=== PATIENT | female | born 1975 | race Caucasian/White ===

== ENCOUNTER 2020-10-21 08:48 | Inpatient (IN) | payer MEDICAID, SELFPAY ==
[~2020-10-21] VITALS: Ht 160 cm; Wt 80.7 kg
[2020-10-21 09:01] VITALS: BP_SYST 96
--- NOTE | 2020-10-21 09:06 | NUR ---
Patient triaged and placed in waiting room. VSS and patient appears in no acute distress at this time. Awaiting available bed, and MD notified of need for MSE.
--- NOTE | 2020-10-21 10:31 | NUR ---
Patient to ER bed 1 to gown for evaluation. Side rails up. Report given to DANIA Rod.
--- NOTE | 2020-10-21 10:34 | NUR ---
ER Dr. Mead at bedside examining patient.
--- NOTE | 2020-10-21 10:36 | NUR ---
Blaise worthy in [facility] - 10/21/20 at 1036 by SDNURGD JESSICA Bowen at bedside examining patient.
--- NOTE | 2020-10-21 10:36 | NUR ---
ER at bedside examining patient.
--- NOTE | 2020-10-21 10:36 | NUR ---
pt arrives from home w/ c/o lower viola quadrant abd pain 06/23, since yesterday. Pt was seen at an urgent care yesterday and was dx w/ a UTI and was dc'd w/ antibiotics. Pt denies N/v/d. reports having issues w/ constipation.
[2020-10-21] MEDS ORDERED: NACL 0.9% 1,000 ML IV ONE (10:45)
[2020-10-21] MEDS ORDERED: KETOROLAC TROMETHAMINE 30 MG VIAL IVP ONE (10:45)
[2020-10-21] MEDS ORDERED: cefTRIAXone 1 GM IVPB PREMIX 50 ML IV ONE (10:45)
--- NOTE | 2020-10-21 10:45 | NUR ---
# 22 gauge angiocath placed to RAC. Use of asceptic technique. Opsite placed over site. Blood return noted. Blood for lab drawn from site. Flushed with 10 cc of normal saline. No evidence of infiltration noted. Patient tolerated well.
--- NOTE | 2020-10-21 10:50 | NUR ---
Patient transported to radiology via , accompanied by hydro technician.
[2020-10-21 11:11] LABS: HEMATOCRIT 40.7 % (36-48); HEMOGLOBIN 13.7 g/dL (12.0-16.0); LYMPHOCYTES # (AUTO) 0.5 K/uL (1.0-5.5); LYMPHOCYTES % (AUTO) 4.4 % (20.5-51.5); MEAN CORPUSCULAR HEMOGLOBIN 29 pg (27-31); MEAN CORPUSCULAR HGB CONC 34 % (32-36); MEAN CORPUSCULAR VOLUME 86 fL (79.0-98.0); MONOCYTES # (AUTO) 0.3 K/uL (0.0-1.0); MONOCYTES % (AUTO) 2.5 % (1.7-9.3); NEUTROPHILS # (AUTO) 11.4 K/uL (1.8-7.7); NEUTROPHILS % (AUTO) 93.1 % (40.0-70.0); PLATELET COUNT (AUTO) 315 K/uL (130-430); RED BLOOD CELL COUNT(AUTO) 4.76 MIL/uL (4.2-6.2); RED CELL DISTRIBUTION WIDTH 13.4 % (9.0-15.0); WHITE BLOOD COUNT (AUTO) 12.3 K/uL (4.8-10.8)
[2020-10-21 11:37] LABS: CREATININE 1.3 mg/dL (0.55-1.30); POTASSIUM 4.1 mmol/L (3.5-5.1)
[2020-10-21 11:42] LABS: ALBUMIN 2.8 g/dL (3.4-4.8)
--- NOTE | 2020-10-21 11:45 | NUR ---
medicated w/ Toradol, Rocephin, and NS 1l per MD order.
[2020-10-21] MEDS ORDERED: ONDANSETRON HCL 4 MG/2 ML VIAL IVP ONE (12:45)
[2020-10-21] MEDS ORDERED: MORPHINE 2 MG/ML INJ. SYRINGE IVP ONE (12:45)
--- NOTE | 2020-10-21 13:03 | NUR ---
Patient transported to radiology via WC, accompanied by us TECH.
[2020-10-21 13:17] LABS: BILIRUBIN,URINE 2+ (NEGATIVE); GLUCOSE,URINE NEGATIVE (NEGATIVE); KETONES,URINE 1+ (NEGATIVE); LEUKOCYTE ESTERASE ,URINE 2+ (NEGATIVE); NITRITE, URINE POSITIVE (NEGATIVE); PROTEIN URINE 3+ (NEGATIVE)
[2020-10-21 13:18] LABS: BLOOD, URINE TRACE (NEGATIVE); COLOR,URINE RED (YELLOW)
[2020-10-21 13:19] LABS: CLARITY/URINE HAZY (CLEAR)
[2020-10-21 13:25] LABS: BACTERIA,URINE None Seen /HPF (None Seen); CALCIUM PHOSPHATE CRYSTALS,UR None Seen /HPF (None Seen); RBC,URINE 0-3 /HPF (0-3); TRICHOMONAS,URINE None Seen /HPF (None Seen); YEAST,URINE None Seen /HPF (None Seen)
[2020-10-21] MEDS ORDERED: DOXYCYCLINE HYCLATE 100 MG in D5W 100 ML IV ONE (14:15)
[2020-10-21] MEDS ORDERED: DOXYCYCLINE HYCLATE 100 MG VIAL IV ONE (14:25)
--- NOTE | 2020-10-21 14:41 | NUR ---
Blaise worthy in [facility] - 10/21/20 at 1447 by CRISELDA pt left at this time accompanied by his son
--- NOTE | 2020-10-21 14:56 | NUR ---
called for a Med Surg bed. Unable to speak to CN at this time
--- NOTE | 2020-10-21 15:12 | NUR ---
covid swab collected and sent to lab
--- NOTE | 2020-10-21 16:04 | NUR ---
called for a Med Surg bed. Unable to speak to CN
[2020-10-21] MEDS ORDERED: PHEN-890 PO (16:39)
[2020-10-21] MEDS ORDERED: CEPH-568 PO (16:39)
--- NOTE | 2020-10-21 16:42 | NUR ---
Medication reconciliation completed with information provided by the pt. Any prior medication reconciliation on file was reviewed and corrected.
--- NOTE | 2020-10-21 16:44 | NUR ---
unable to obtain a Med Surg bed Addendum: 10/21/20 at 1705 by CRISELDA CN refusing to take patient information
[2020-10-21] MEDS: 0.45% NACL 1,000 ML IV SCH (17:43)
--- NOTE | 2020-10-21 17:51 | NUR ---
Dr. Hackett at the bedside
[2020-10-21] MEDS ORDERED: ACETAMINOPHEN 500 MG TABLET ONE (17:53)
[2020-10-21] MEDS: ACETAMINOPHEN 500 MG TABLET PO PRN (17:55)
--- NOTE | 2020-10-21 18:13 | NUR ---
Patient is refusing to be admitted to COVID unit. Dr. Lew sawyer.
--- NOTE | 2020-10-21 18:27 | NUR ---
Patient will be admitted to care of [facility]. Admitted to MED SURG unit. Will go to room 101-A. Belongings list completed. Complete and up to date summary report printed. SBAR report to be given at bedside with opportunity for questions. BEDSIDE REPORT TO BE GIVEN
--- NOTE | 2020-10-21 18:43 | NUR ---
Admission Note patient brought to room 101A via gurney by AUTO PARKER, patient ambulated to bed, steady gait noted, received bedside SBAR report from AUTO PARKER, patient resting in bed, A&O x4, respirations even and unlabored on room air, no acute distress noted, patient provided with water, educated patient on use of call light and asked to call for assistance, patient verbalized understanding, call light in reach, educated patient on use of bed alarm for patient safety, patient refusing bed alarm, bed in low and locked position.
[2020-10-21 18:45] VITALS: BP_SYST 99
--- NOTE | 2020-10-21 19:09 | NUR ---
Closing Note bedside SBAR report given to receiving RN, patient sitting up in bed, no acute distress noted, educated patient on use of call light and asked to call for assistance, patient verbalized understanding, call light in reach, educated patient on use of bed alarm for patient safety, patient refusing bed alarm, bed in low and locked position, care endorsed to nightclub manager RN.
--- NOTE | 2020-10-21 19:15 | NUR ---
OPENING NOTES: RECEIVED SBAR REPORT FROM DAY SHIFT RN. PATIENT IS AWAKE, ALERT AND ORIENTED X4. RESPIRATION IS EVEN AND UNLABORED ON RA. REPORTS PAIN IN LOWER ABDOMEN. IV NOTED ON R AC. OCCLUDED. SAFETY AND FALL PRECAUTIONS IN PLACE. CALL LIGHT IS WITH PATIENT. WILL GIVE MED FOR PAIN.
--- NOTE | 2020-10-21 19:20 | NUR ---
SPOKE TO DR. ARMAS, NEW ORDERS OF PAIN MEDS RECEIVED.
[2020-10-21 20:00] VITALS: BP_SYST 101
[2020-10-21] MEDS ORDERED: cefOXitin SODIUM 2 GM in D5W 100 ML IV ONE (20:00)
[2020-10-21] MEDS: DOXYCYCLINE HYCLATE 100 MG CAPSULE PO SCH (20:25)
--- NOTE | 2020-10-21 20:30 | NUR ---
IS AT PATIENT BED SIDE. PLAN OF CARE DISCUSSED WITH PATIENT.
[2020-10-21] MEDS: MORPHINE 2 MG/ML INJ. SYRINGE IVP PRN (20:31)
[2020-10-21] MEDS: ONDANSETRON HCL 4 MG/2 ML VIAL IVP PRN (20:32)
--- NOTE | 2020-10-22 00:30 | NUR ---
NEW IV 22 GAUGE STARTED ON L FOREARM.
--- NOTE | 2020-10-22 01:56 | NUR ---
CONSULT REASON FOR CONSULT: ABD PAIN PERSON I SPOKE WITH: YOBANY CONSULTING PHYSICIAN: DR. SALCEDO LATCHER PHONE NUMBER: [phone] ORDERING PHYSICIAN: Lizzy RAMIREZ
[2020-10-22] MEDS: metroNIDAZOLE 500 mg/NS 100 ML IV SCH ×4 (02:13→21:03)
[2020-10-22 02:16] VITALS: BP_SYST 104
--- NOTE | 2020-10-22 02:30 | NUR ---
RN ROUNDS: PATIENT IS AWAKE, IVF INFUSING ORDERED RATE. NO S/S ACUTE DISTRESS NOTED. SAFETY AND FALL PRECAUTIONS IN PLACE. CALL LIGHT WITH PATIENT. WILL MONITOR PATIENT.
--- NOTE | 2020-10-22 05:47 | NUR ---
CONSULT REASON FOR CONSULT: PID PERSON I SPOKE WITH: YASMIN CONSULTING PHYSICIAN: Gigi RAMIREZ ADMINISTRATOR SOCIAL WELFARE PHONE NUMBER: [phone] ORDERING PHYSICIAN: DR. ARMAS
[2020-10-22] MEDS: ONDANSETRON HCL 4 MG/2 ML VIAL IVP PRN (06:10)
[2020-10-22] MEDS: cefOXitin SODIUM 2 GM in D5W 100 ML IV SCH ×3 (06:10→17:36)
[2020-10-22] MEDS: MORPHINE 2 MG/ML INJ. SYRINGE IVP PRN ×3 (06:14→20:09)
--- NOTE | 2020-10-22 07:04 | NUR ---
CLOSING NOTE: PATIENT GIVEN MORNING IV MED . REPORTS ABDOMEN PAIN. PAIN MED GIVEN. NO S/S ACUTE DISTRESS NOTED. SAFETY AND FALL PRECAUTIONS IN PLACE. CALL LIGHT IS WITHIN REACH. ALL NEEDS MET THROUGHOUT SHIFT. WILL ENDORSE PATIENT CARE TO DAY SHIFT NURSE.
--- NOTE | 2020-10-22 07:10 | NUR ---
Opening Note Received report from endorsing RN. Pt AAO, states no acute pain or distress at this time. IV site intact, patent, no infiltration noted. Pt states being unable to have BM and is c/o constipation. Afebrile. Able to ambulate to bathroom with steady gait. No other complaints at this time.
[2020-10-22 08:00] VITALS: BP_SYST 98
--- NOTE | 2020-10-22 08:23 | NUR ---
Nutrition Update Mohamud scale 17 noted. Pt admitted for urinary tract infection, possible pelvic inflammatory disease Diet: Regular Diet BMI: 31.5 kg/m2 RD to follow per nutrition care standards.
[2020-10-22] MEDS ORDERED: POLYETHYLENE GLYCOL 3350, 17 GM/ POWD.PACK PO ONE (08:30)
[2020-10-22] MEDS ORDERED: DOCUSATE SODIUM 100 MG CAPSULE PO ONE (08:30)
[2020-10-22] MEDS ORDERED: cefTRIAXone 1 GM IVPB PREMIX 50 ML IV SCH (09:00)
[2020-10-22] MEDS: DOXYCYCLINE HYCLATE 100 MG CAPSULE PO SCH ×2 (09:03→21:03)
[2020-10-22 12:00] VITALS: BP_SYST 93
--- NOTE | 2020-10-22 12:00 | NUR ---
Pt noted with temp 99.5, provided with ice packs. No complaints of pain at this time. Pt frequently ambulates to bathroom with steady gait.
[2020-10-22] MEDS: 0.45% NACL 1,000 ML IV SCH (12:07)
--- NOTE | 2020-10-22 13:27 | NUR ---
Dr. Foster called for new orders of pain medication. New orders made for ultram 50 mg PO Q6HR PRN.
--- NOTE | 2020-10-22 13:31 | NUR ---
HIGH ALERT NOTE: Called Dr. Foster back at [phone] identified within the medical roster to verify physician authenticity.
[2020-10-22 16:00] VITALS: BP_SYST 97
--- NOTE | 2020-10-22 17:00 | NUR ---
BM Pt states she had small to moderate amount of loose stool. Pt states some relief with BM but is still in some pain when moving. Pt ambulating around room, steady gait, and raising legs. No other complaints at this time.
--- NOTE | 2020-10-22 18:14 | NUR ---
Closing Pt sitting up in chair, states no active pain at this time and states she feels cooler. Frequently ambulates to bathroom with steady gait. IV site intact, patent, no infiltration noted with IVF infusing. No other complaints at this time. Will endorse plan of care to night assistant RN.
[2020-10-22 19:00] VITALS: BP_SYST 106
--- NOTE | 2020-10-22 19:15 | NUR ---
change of shift.pt.presents quiescent affect;calm,resting oob to chair.pt.presents iv access intact;patent iv fluids infusing.pt.capable to reposition self/ambulate.diet status regular.general status stable.respiratory stable;unlabored @room air.call light/telephone w/in access of the pt.
[2020-10-22] MEDS ORDERED: traMADol HCL HCL 50 MG TABLET (ULTRAM) ONE (19:57)
[2020-10-22 20:00] VITALS: BP_SYST 106
--- NOTE | 2020-10-22 20:00 | NUR ---
pt.assessed.v/s assessed values w/in normal limits.iv access intact;patent iv fluids infusing.pt.had requested medication;pain. i have administered morphine:2mg ivp 2/t pain status intensity level.to assess the pain medication efficacy per pain mgx protocol. i have provided an abdominal binder for additional abdomen support/pair of socks.i have apprised the pt.that snacks/beverages are available w/in the shift.pt.stated the diet status regular is challenging.i have apprise the pt.that jello/pudding;light foods are available.pt.declined the offer snacks@this hour.general stats stable.respiratory status stable;unlabored/call light/telephone w/in the access of the pt.
[2020-10-22] MEDS: traMADol HCL HCL 50 MG TABLET (ULTRAM) PO PRN (20:01)
--- NOTE | 2020-10-22 21:00 | NUR ---
2100pmedications administered.pt.capable to ingest the po medications w/out difficulty.no requests posited@this hour. pt.has returned to bed.capable to reposition self.call light/telephone w/in access of the pt.
[2020-10-22] MEDS: DOCUSATE SODIUM 100 MG CAPSULE PO SCH (21:03)
[2020-10-22 21:09] LABS: CHLAMYDIA TRACHOMATIS NAA Negative (Negative); NEISSERIA GONORRHOEAE NAA Negative (Negative)
--- NOTE | 2020-10-22 22:00 | NUR ---
pt.assessed.pt.presents quiescent affect;calm,somnolent.per flacc pain mgx pt.absent facial grimaces/body posturing.iv access intact;patent iv fluids infusing.general status stable.respiratory status stable;unlabored.call light/telephone w/in access of the pt.
--- NOTE | 2020-10-23 | NUR ---
pt.assessed.v/s assessed values w/in normal limits.no c/o pain.nausea.iv access intact;patent iv fluids infusing.general status stable.respiratory status stable.pt.capable to reposition self.i have administered maxipime;abx ivpb 000a dose.call light/telephone w/in access of the pt.
[2020-10-23 00:17] VITALS: BP_SYST 103
[2020-10-23] MEDS: cefOXitin SODIUM 2 GM in D5W 100 ML IV SCH ×4 (00:49→18:07)
--- NOTE | 2020-10-23 02:00 | NUR ---
pt.assessed.pt.presents quiescent affect;calm,somnolent.iv access intact;patent iv fluids infusing.per flacc pain mgx pt.absent facial grimaces/body posturing.pt.capable to reposition self.general status stable.respiratory status stable;unlabored.call light/telephone w/in access of the pt.
--- NOTE | 2020-10-23 04:00 | NUR ---
pt.assessed.pt.presents quiescent affect;calm,somnolent.per flacc pain mgx pt.absent facial grimaces/body posturing. iv access intact;patent iv fluids infusing.pt.capable to reposition self.call light/telephone placed w/in access of the pt.
[2020-10-23] MEDS: 0.45% NACL 1,000 ML IV SCH (05:50)
[2020-10-23] MEDS: metroNIDAZOLE 500 mg/NS 100 ML IV SCH ×3 (05:51→21:56)
[2020-10-23] MEDS: MORPHINE 2 MG/ML INJ. SYRINGE IVP PRN (05:54)
--- NOTE | 2020-10-23 06:30 | NUR ---
pt.assessed.pt.had requested medication pain.i have administered morphine:2mg per the pain intensity parameters levels. to assess the efficacy of the pain medication per pain mgx protocol.iv access intact;patent iv fluids:infusing i have changed the iv fluids bag.i have administered flagyl/mefoxin abx ivpb 0600a dose.pt.had ambulated to the restroom;gait assessed wnl call light/telephone w/in reach of the pt.
[2020-10-23 06:43] LABS: BASOPHILS % (AUTO) 0.2 % (0.0-2.0); EOSINOPHILS # (AUTO) 0.1 K/uL (0.0-0.4); EOSINOPHILS % (AUTO) 0.6 % (0.0-4.0); HEMATOCRIT 35.1 % (36-48); HEMOGLOBIN 11.6 g/dL (12.0-16.0); LYMPHOCYTES # (AUTO) 1.1 K/uL (1.0-5.5); LYMPHOCYTES % (AUTO) 7.5 % (20.5-51.5); MEAN CORPUSCULAR HEMOGLOBIN 28 pg (27-31); MEAN CORPUSCULAR HGB CONC 33 % (32-36); MEAN CORPUSCULAR VOLUME 85 fL (79.0-98.0); MONOCYTES # (AUTO) 0.7 K/uL (0.0-1.0); MONOCYTES % (AUTO) 4.7 % (1.7-9.3); NEUTROPHILS # (AUTO) 12.5 K/uL (1.8-7.7); PLATELET COUNT (AUTO) 295 K/uL (130-430); RED BLOOD CELL COUNT(AUTO) 4.12 MIL/uL (4.2-6.2); RED CELL DISTRIBUTION WIDTH 13.8 % (9.0-15.0); WHITE BLOOD COUNT (AUTO) 14.4 K/uL (4.8-10.8)
[2020-10-23 07:20] LABS: ALBUMIN 2.2 g/dL (3.4-4.8); CALCIUM 8.2 mg/dL (8.4-11.0); CREATININE 0.85 mg/dL (0.55-1.30); POTASSIUM 4.4 mmol/L (3.5-5.1); TOTAL BILIRUBIN 0.4 mg/dL (0.0-1.0)
[2020-10-23 07:53] VITALS: BP_SYST 106
--- NOTE | 2020-10-23 07:55 | NUR ---
am notes pt in bed. a/ox4. denies any pain at this pain. res even and unlabored. ivf infusing well. iv site left arm #24. intact. no s/s of infiltration noted. safety/fall precautions in place. bed low and in lacked position. poc discussed with pt. verbalized understanding. call light within reach. will continue to monitor
[2020-10-23] MEDS: DOCUSATE SODIUM 100 MG CAPSULE PO SCH ×2 (09:19→21:54)
[2020-10-23] MEDS: DOXYCYCLINE HYCLATE 100 MG CAPSULE PO SCH ×2 (09:20→21:54)
[2020-10-23] MEDS: POLYETHYLENE GLYCOL 3350, 17 GM/ POWD.PACK PO SCH (09:20)
[2020-10-23] MEDS ORDERED: traMADol HCL HCL 50 MG TABLET (ULTRAM) ONE (09:46)
[2020-10-23] MEDS: traMADol HCL HCL 50 MG TABLET (ULTRAM) PO PRN ×2 (09:47→21:54)
[2020-10-23 12:06] VITALS: BP_SYST 112
--- NOTE | 2020-10-23 13:30 | NUR ---
ROUNDS PT STABLE. VITALS STABLE. NOT IN ACUTE DISTRESS.IVF INFUSING WELL. WILL CONTINUE TO MONITOR
--- NOTE | 2020-10-23 14:54 | NUR ---
rounds ROUNDS PT STABLE.. NOT IN ACUTE DISTRESS.IVF INFUSING WELL.DENIES ANY PAIN AT THIS TIME. WILL CONTINUE TO MONITOR
[2020-10-23 16:08] VITALS: BP_SYST 94
--- NOTE | 2020-10-23 18:10 | NUR ---
ROUNDS PT STABLE NOTIN ACUTE DISTRESS. EATING DINNER. DENIES ANY PAIN OR OTHER DISCOMFORT. IVF INFUSING WELL. SAFETY/FALL PRECAUTIONS IN PLACE. CALL LIGHT WITHIN REACH.WILL CONTINUE TO MONITOR
--- NOTE | 2020-10-23 18:52 | NUR ---
closing notes pt stable not in acute distress. .ivf infusing well no s/s of infiltration noted. needs attended throughout shift . safety /fall precaution in place. will endorse to night nurse
--- NOTE | 2020-10-23 19:25 | NUR ---
opening note Received patient awake, AOx4 resting in bed, no distress and non labored breathing on room air. IVF infusing via IV to LFA. Presently reports pain is tolerable and will hold off on medication. Reviewed plan of care and updated board.
[2020-10-23 20:00] VITALS: BP_SYST 141
--- NOTE | 2020-10-23 21:54 | NUR ---
Meds / Pain med Due meds given; Reviewed side effects of antibiotic Flagyl (itching, rash, urine brown) and she verbalized understanding. She requested pain med for moderate pain and Ultram was given as ordered. Call light w/in reach.
[2020-10-23] MEDS: ACETAMINOPHEN 500 MG TABLET PO PRN ×2 (23:44→23:46)
[2020-10-24 00:36] VITALS: BP_SYST 108
[2020-10-24] MEDS: cefOXitin SODIUM 2 GM in D5W 100 ML IV SCH ×5 (00:36→23:21)
--- NOTE | 2020-10-24 00:40 | NUR ---
ANTIBIOTIC Mefoxin administered; reviewed side effects and patient verbalized understanding. Infusing well; tolerating. She has no further needs, call light w/in reach.
--- NOTE | 2020-10-24 05:37 | NUR ---
lab draw research laboratory specialist at bedside for blood draw.
[2020-10-24] MEDS: 0.45% NACL 1,000 ML IV SCH ×2 (05:42→23:21)
[2020-10-24] MEDS: metroNIDAZOLE 500 mg/NS 100 ML IV SCH ×3 (05:42→21:28)
--- NOTE | 2020-10-24 05:55 | NUR ---
IVF, antibiotic Hung new bag of 1/2 NS; infusing well, no infiltration. Administered Flagyl antibiotic, tolerating. Requested new pitcher ice water; it was provided.
--- NOTE | 2020-10-24 07:00 | NUR ---
closing note Patient resting in comfortable position, no distress, non labored breathing. IVPB antibiotic infusing well; patient tolerating. Presently no request for pain med. Will endorse to day shift nurse.
[2020-10-24 07:03] LABS: BASOPHILS % (AUTO) 0.2 % (0.0-2.0); EOSINOPHILS # (AUTO) 0.2 K/uL (0.0-0.4); EOSINOPHILS % (AUTO) 1.5 % (0.0-4.0); HEMATOCRIT 33.3 % (36-48); LYMPHOCYTES # (AUTO) 1.3 K/uL (1.0-5.5); LYMPHOCYTES % (AUTO) 9.3 % (20.5-51.5); MEAN CORPUSCULAR HEMOGLOBIN 28 pg (27-31); MEAN CORPUSCULAR HGB CONC 33 % (32-36); MEAN CORPUSCULAR VOLUME 86 fL (79.0-98.0); MONOCYTES % (AUTO) 7.4 % (1.7-9.3); NEUTROPHILS # (AUTO) 11.4 K/uL (1.8-7.7); NEUTROPHILS % (AUTO) 81.6 % (40.0-70.0); PLATELET COUNT (AUTO) 292 K/uL (130-430); RED BLOOD CELL COUNT(AUTO) 3.89 MIL/uL (4.2-6.2); RED CELL DISTRIBUTION WIDTH 13.8 % (9.0-15.0); WHITE BLOOD COUNT (AUTO) 13.9 K/uL (4.8-10.8)
--- NOTE | 2020-10-24 07:50 | NUR ---
INITIAL NOTE RECEIVED PT IN BED, NO S/S OF DISTRESS OR SOB NOTED, PT HAS NO C/O PAIN AT THIS TIME, PT IN STABLE CONDITION, PT AAOX4, VERBAL, IV CATHETER PATENT, NO SIGNS OF INFECTION OR INFILTRATION NOTED, RUNNING IV FLUIDS ORDERED. BED AT LOWEST POSITION, CALL LIGHT WITHIN REACH, WILL CONTINUE TO MONITOR PT FOR ANY CHANGES, FALL AND SAFETY PRECAUTIONS IN PLACE.
[2020-10-24 08:01] LABS: CALCIUM 8.4 mg/dL (8.4-11.0); CREATININE 0.79 mg/dL (0.55-1.30)
[2020-10-24 08:10] VITALS: BP_SYST 98
[2020-10-24] MEDS: DOCUSATE SODIUM 100 MG CAPSULE PO SCH ×2 (08:53→21:27)
[2020-10-24] MEDS: POLYETHYLENE GLYCOL 3350, 17 GM/ POWD.PACK PO SCH (08:54)
[2020-10-24] MEDS: DOXYCYCLINE HYCLATE 100 MG CAPSULE PO SCH ×2 (08:54→21:27)
[2020-10-24] MEDS: traMADol HCL HCL 50 MG TABLET (ULTRAM) PO PRN ×2 (08:56→17:46)
--- NOTE | 2020-10-24 09:57 | NUR ---
ROUNDS DR MATIAS CHUN, AWARE OF PATIENTS CONDITION, NEW ORDERS GIVEN.
[2020-10-24] MEDS ORDERED: MILK OF MAGNESIA 30 ML UDC PO PRN (10:00)
[2020-10-24] MEDS: SIMETHICONE 80 MG TAB.CHEW PO SCH ×4 (10:00→21:28)
--- NOTE | 2020-10-24 10:30 | NUR ---
ROUNDS PT IN BED, NO S/S OF DISTRESS OR SOB NOTED, PT HAS NO C/O PAIN AT THIS TIME, PT IN STABLE CONDITION, PT RESTING COMFORTABLY. WILL CONTINUE TO MONITOR PT FOR ANY CHANGES.
[2020-10-24 12:04] VITALS: BP_SYST 95
--- NOTE | 2020-10-24 12:20 | NUR ---
ROUNDS DR CALLIE LANCE ROUNDING, REMOVED IUD, PT TOLERATED.
--- NOTE | 2020-10-24 13:56 | NUR ---
DC Barriers: IUD removed today, per dr. Berry : planing dc tomorrow if cleared by ID and OB.
[2020-10-24 16:05] VITALS: BP_SYST 99
--- NOTE | 2020-10-24 18:50 | NUR ---
CLOSING NOTE PT IN BED, NO S/S OF DISTRESS OR SOB NOTED, PT HAS NO C/O PAIN AT THIS TIME, PT IN STABLE CONDITION, PT AAOX4, VERBAL, IV CATHETER PATENT, NO SIGNS OF INFECTION OR INFILTRATION NOTED, RUNNING IV FLUIDS ORDERED. BED AT LOWEST POSITION, CALL LIGHT WITHIN REACH, WILL ENDORSE CARE OF PT TO INCOMING NURSE, FALL AND SAFETY PRECAUTIONS IN PLACE.
[2020-10-24] MEDS: MORPHINE 2 MG/ML INJ. SYRINGE IVP PRN (19:31)
--- NOTE | 2020-10-24 19:35 | NUR ---
ROUNDS PATIENT IN BED, NOT IN DISTRESS, VITALS STABLE, C/O ABDOMINAL PAIN AT THIS TIME. ASSESSMENT DONE AND DOCUEMNTED. SEE FLOWSHEET. NEEDS ATTENDED TO. SAFETY MEASURES IN PLACED. BED IN LOW AND LOCKED POSITION. CALL LIGHT PLACED WITHIN REACH.
[2020-10-24 20:00] VITALS: BP_SYST 118
--- NOTE | 2020-10-24 21:13 | NUR ---
MEDICATIONS DUE MEDICATIONS GIVEN ORDERED, TOLERATED WELL. WILL CONTINUE TO MONITOR.
[2020-10-25] VITALS: BP_SYST 121
--- NOTE | 2020-10-25 00:12 | NUR ---
PATIENT RESTING: Patient resting quietly. No acute distress noted. Vital signs within normal range.
--- NOTE | 2020-10-25 04:17 | NUR ---
ROUNDS PATIENT ASLEEP, RESPIRATIONS EVEN AND UNLABORED, WILL CONTINUE TO MONITOR.
[2020-10-25] MEDS: cefOXitin SODIUM 2 GM in D5W 100 ML IV SCH ×3 (05:22→18:35)
[2020-10-25] MEDS: metroNIDAZOLE 500 mg/NS 100 ML IV SCH ×3 (06:25→22:18)
[2020-10-25] MEDS: MORPHINE 2 MG/ML INJ. SYRINGE IVP PRN ×4 (06:39→22:17)
--- NOTE | 2020-10-25 07:30 | NUR ---
OPENING NOTES PT AWAKE AND ALERT. NONLABORED BREATHING NOTED ON ROOM AIR. IV LINE INTACT AND PATENT, NO SIGNS OF INFILTRATION NOTED, FLUIDS RUNNING ORDERED PER MD. NO ACUTE DISTRESS NOTED. ALL NEEDS MET. CALL LIGHT IN REACH. FALL AND ASPIRATION PRECAUTIONS IN PLACE. CONTINUE TO MONITOR.
[2020-10-25 08:00] VITALS: BP_SYST 101
[2020-10-25] MEDS: DOXYCYCLINE HYCLATE 100 MG CAPSULE PO SCH ×2 (08:16→20:43)
[2020-10-25] MEDS: DOCUSATE SODIUM 100 MG CAPSULE PO SCH ×2 (08:16→20:43)
[2020-10-25] MEDS: SIMETHICONE 80 MG TAB.CHEW PO SCH ×6 (08:16→20:45)
[2020-10-25] MEDS: POLYETHYLENE GLYCOL 3350, 17 GM/ POWD.PACK PO SCH (08:16)
--- NOTE | 2020-10-25 08:26 | NUR ---
PT DENIES HAVING PASS GAS, BUT HAS PASSED BM YESTERDAY. ROUTINE MEDS ADMINISTERED ORDERED PER MD, EDUCATIONS GIVEN, PT VERBALIZED UNDERSTANDING, TOLERATED WELL. CONTINUE TO MONITOR.
[2020-10-25] MEDS: ONDANSETRON HCL 4 MG/2 ML VIAL IVP PRN (12:36)
--- NOTE | 2020-10-25 12:50 | NUR ---
pt c/o pain and nausea, checked bp, administered prn meds as ordered per md, education given, tolerated well. continue to monitor.
--- NOTE | 2020-10-25 15:03 | NUR ---
administered iv abx as ordered per md, education given, tolerated well. continue to monitor.
[2020-10-25 15:10] VITALS: BP_SYST 103
--- NOTE | 2020-10-25 17:12 | NUR ---
pt c/o pain, checked bp, administered prn pain meds as ordered per md, education given, tolerated well. continue to monitor.
--- NOTE | 2020-10-25 18:36 | NUR ---
patient states having passed some gas, and passed bm today. administered iv abx as ordered per md, education given, tolerated well. continue to monitor.
--- NOTE | 2020-10-25 19:00 | NUR ---
CLOSING NOTES PT AWAKE AND ALERT. NONLABORED BREATHING NOTED ON ROOM AIR. PT DENIES PAIN AND SOB AT THIS TIME. IV LINE INTACT AND PATENT, NO SIGNS OF INFILTRATION NOTED, FLUIDS RUNNING ORDERED PER MD. NO ACUTE DISTRESS NOTED. ALL NEEDS MET. CALL LIGHT IN REACH. FALL AND ASPIRATION PRECAUTIONS IN PLACE. ENDORSED CARE TO DANIA TRAORE.
--- NOTE | 2020-10-25 19:30 | NUR ---
OPENING NOTES: RECEIVED SBAR REPORT FROM DAY SHIFT RN. PATIENT IS AWAKE, DENIES PAIN. BREAHTING UNLABORED AND EVEN ON RA. NO S/S ACUTE DISTRESS NOTED AT THIS TIME. IVF INFUSING ORDERED RATE. SAFETY AND FALL PRECAUTIONS IN PLACE. CALL LIGHT IS WITH PATIENT. WILL CONTINUE TO MONITOR.
[2020-10-25 20:00] VITALS: BP_SYST 107
[2020-10-25] MEDS: ACETAMINOPHEN 500 MG TABLET PO PRN (20:39)
--- NOTE | 2020-10-25 20:43 | NUR ---
MED PASS: PATIENT GIVEN SCHEDULED MEDS. TYLENOL 1000 MG FOR PAIN. RESPIRATION IS EVEN AND UNLABORED. NO S/S ACUTE DISTRESS NOTED. SAFETY AND FALL PRECAUTIONS IN PLACE. CALL LIGHT IS WITH PATIENT.WILL CONTINUE TO MONITOR.
--- NOTE | 2020-10-25 22:17 | NUR ---
PATIENT REPORTS ABDOMINAL PAIN. MORPHINE GIVEN. WILL ASSESS THE PAIN.
[2020-10-25] MEDS: 0.45% NACL 1,000 ML IV SCH (22:18)
[2020-10-26] VITALS: BP_SYST 100
--- NOTE | 2020-10-26 00:30 | NUR ---
RN ROUNDS: PATIENT IS ASLEEP. NO S/S ACUTE DISTRESS NOTED. SAFETY AND FALL PRECAUTIONS IN PLACE. CALL LIGHT IS WITH PATIENT.
[2020-10-26] MEDS: cefOXitin SODIUM 2 GM in D5W 100 ML IV SCH ×5 (00:48→23:28)
--- NOTE | 2020-10-26 02:30 | NUR ---
RN ROUNDS: PATIENT IS ASLEEP. NO S/S ACUTE DISTRESS NOTED. BREATHING IS EVEN AND UNLABORED ON RA. SAFETY AND FALL PRECAUTIONS IN PLACE. CALL LIGHT IS WITH PATIENT. WILL CONTINUE TO MONITOR.
--- NOTE | 2020-10-26 04:00 | NUR ---
RN ROUNDS: PATIENT IS IN BED, CURRENTLY SLEEPING. NO S/S ACUTE DISTRESS NOTED. WILL CONTINUE TO MONITOR.
[2020-10-26] MEDS: metroNIDAZOLE 500 mg/NS 100 ML IV SCH ×3 (05:47→21:22)
--- NOTE | 2020-10-26 07:30 | NUR ---
OPENING NOTES PT AWAKE AND ALERT AND ORIENTED. NONLABORED BREATHING NOTED ON ROOM AIR. IV LINE INTACT AND PATENT, NO SIGNS OF INFILTRATION NOTED, FLUIDS RUNNING ORDERED PER MD. NO ACUTE DISTRESS NOTED. ALL NEEDS MET. CALL LIGHT IN REACH. FALL AND ASPIRATION PRECAUTIONS IN PLACE. CONTINUE TO MONITOR.
--- NOTE | 2020-10-26 07:33 | NUR ---
CLOSING NOTE: PATIENT IS AWAKE. DENIES PAIN. NO S/S ACUTE DISTRESS NOTED. SAFETY AND FALL PRECAUTIONS IN PLACE. CALL LIGHT IS WITH PATIENT. ALL NEEDS MET . PATIENT'S PLAN OF CARE ENDORSED TO DAY SHIFT RN.
[2020-10-26 08:00] VITALS: BP_SYST 113
[2020-10-26] MEDS: DOCUSATE SODIUM 100 MG CAPSULE PO SCH ×2 (08:32→21:00)
[2020-10-26] MEDS: MORPHINE 2 MG/ML INJ. SYRINGE IVP PRN ×2 (08:32→13:32)
--- NOTE | 2020-10-26 08:32 | NUR ---
PT C/O PAIN, ADMINISTERED PAIN MEDS ORDERED PER MD, EDUCATION GIVEN, TOLERATED WELL. CONTINUE TO MONITOR.
[2020-10-26] MEDS: DOXYCYCLINE HYCLATE 100 MG CAPSULE PO SCH ×2 (08:33→21:22)
[2020-10-26] MEDS: POLYETHYLENE GLYCOL 3350, 17 GM/ POWD.PACK PO SCH (08:33)
--- NOTE | 2020-10-26 08:42 | NUR ---
ROUTINE MEDS ADMINISTERED ORDERED PER MD, EDUCATION GIVEN, TOLERATED WELL. CONTINUE TO MONITOR. PT REFUSED COLACE, MIRALAX AND MYLICON, EDUCATION GIVEN, PT CONTINUE TO REFUSE. PT PASSING GAS AND BM.
[2020-10-26] MEDS: traMADol HCL HCL 50 MG TABLET (ULTRAM) PO PRN ×2 (10:32→17:04)
--- NOTE | 2020-10-26 10:32 | NUR ---
pt c/o pain, administered prn pain meds as ordered per md, education given, tolerated well. pt requests for hot tea, given, all needs met. continue to monitor.
[2020-10-26 12:00] VITALS: BP_SYST 103
[2020-10-26] MEDS: SIMETHICONE 80 MG TAB.CHEW PO SCH ×3 (12:10→21:23)
--- NOTE | 2020-10-26 12:16 | NUR ---
iv abx administered as ordered per md, education given, tolerated well. pt erefused mylicon, education given, pt continue to refuse. pt stated passing gas. continue to monitor.
--- NOTE | 2020-10-26 13:32 | NUR ---
pt c/o pain, administered prn pain meds as ordered per md, education given, tolerated well. administered iv abx as ordered. continue to monitor.
[2020-10-26] MEDS: 0.45% NACL 1,000 ML IV SCH (15:00)
[2020-10-26 16:00] VITALS: BP_SYST 125
--- NOTE | 2020-10-26 17:13 | NUR ---
routine meds administered as ordered per md, education given, tolerated well. continue to monitor.
--- NOTE | 2020-10-26 18:38 | NUR ---
HIGH ALERT NOTE: spoke to dr. cramer in person at nurse's station identified within the medical roster to verify physician authenticity.
--- NOTE | 2020-10-26 18:44 | NUR ---
CLOSING NOTES PT AWAKE AND ALERT. NONLABORED BREATHING NOTED ON ROOM AIR. IV LINE INTACT AND PATENT, NO SIGNS OF INFILTRATION NOTED, FLUIDS RUNNING ORDERED. NO ACUTE DISTRESS NOTED. ALL NEEDS MET. CALL LIGHT IN REACH. FALL AND ASPIRATION PRECAUTIONS IN PLACE. WILL ENDORSE TO NOC NURSE.
[2020-10-26] MEDS ORDERED: TEMAZEPAM 7.5 MG CAPSULE PO PRN (18:45)
--- NOTE | 2020-10-26 21:23 | NUR ---
MED PASS PATIENT DUE MEDICATIONS GIVEN. VITAL SIGNS STABLE. NO C/O PAIN AT THIS TIME.
[2020-10-26 21:24] VITALS: BP_SYST 112
[2020-10-26 23:31] VITALS: BP_SYST 109
--- NOTE | 2020-10-26 23:51 | NUR ---
MD ROUNDS DR. MARTHA MILLER SAW PATIENT. PER MD PATIENT CAN GO HOME TOMORROW. NEW ORDER TO CHANGED IV FLAGYL TO PO.
[2020-10-27] MEDS: MORPHINE 2 MG/ML INJ. SYRINGE IVP PRN ×2 (02:23→09:19)
--- NOTE | 2020-10-27 02:23 | NUR ---
PAIN MGT PATIENT MEDICATED WITH MORPHINE ORDERED FOR C/O ABDOMINAL PAIN. VITAL SIGNS STABLE. CALL LIGHT WITH IN REACH.
[2020-10-27] MEDS: cefOXitin SODIUM 2 GM in D5W 100 ML IV SCH ×3 (05:25→18:34)
[2020-10-27] MEDS: 0.45% NACL 1,000 ML IV SCH ×2 (05:25→20:48)
--- NOTE | 2020-10-27 05:25 | NUR ---
ATB PATIENT DUE ANTIBIOTIC INFUSING. IV LINE INTACT AND PATENT. NO C/O PAIN.
--- NOTE | 2020-10-27 06:50 | NUR ---
CLOSING NOTES NO CHANGE IN PATIENT CONDITION. PATIENT NEEDS ATTENDED.
[2020-10-27 07:38] VITALS: BP_SYST 103; BP_SYST 95
--- NOTE | 2020-10-27 08:00 | NUR ---
ASSUMPTION OF CARE: RECEIVED PT A/A/OX4, DX: RISK FOR FLUID VOLUME DEFICIT, R/T UTI, AFEBRILE, VSS, BREATHING EASY, SATURATING 97% ORA, IV SITE INTACT, PATENT, NO REDNESS OR SWELLING, NO S/S OF DISTRESS, ORIENTED TO UNIT AND CALL LIGHT , PLACED WITHIN REACH, WILL CONT' TO MONITOR AND ASSESS.
--- NOTE | 2020-10-27 09:00 | NUR ---
RN NURSERY: MORNING MEDS GIVEN, PER ORDERED BY Da, MEDICATED FOR ABD PAIN 8/10 VIA NUMERIC SCALE, MS 2 MG IVP, TOLERATED WELL, WATER, CALL LIGHT AND TELEPHONE PLACED WITHIN REACH, WILL CONT' TO MONITOR AND ASSESS.
[2020-10-27] MEDS: DOXYCYCLINE HYCLATE 100 MG CAPSULE PO SCH ×2 (09:19→20:48)
[2020-10-27] MEDS: metroNIDAZOLE 500 MG TABLET PO SCH ×2 (09:19→20:48)
[2020-10-27] MEDS: SIMETHICONE 80 MG TAB.CHEW PO SCH ×4 (09:19→20:51)
[2020-10-27] MEDS: DOCUSATE SODIUM 100 MG CAPSULE PO SCH ×2 (09:20→20:51)
[2020-10-27] MEDS: POLYETHYLENE GLYCOL 3350, 17 GM/ POWD.PACK PO SCH (09:20)
[2020-10-27 11:59] VITALS: BP_SYST 118
[2020-10-27] MEDS: traMADol HCL HCL 50 MG TABLET (ULTRAM) PO PRN (13:39)
--- NOTE | 2020-10-27 14:57 | NUR ---
DC PLANNING Called & spoke with Dr Foster to discuss dc plan if can dc home, per notes Dr Hackett cleared pt on Po abx, but Dr Foster hung up on CM, informed CM director. Addendum: 10/27/20 at 1544 by Evelina Kurtz RN Spoke with CM Director, Dr Foster called back states was busy. Pt having alot of abd pain with fecal impaction. Pt getting meds for fecal impaction & plan for discharge home tomorrow.
[2020-10-27] MEDS ORDERED: MILK OF MAGNESIA 30 ML UDC PO PRN (15:15)
--- NOTE | 2020-10-27 18:00 | NUR ---
CLOSING NOTES: PT REMAINS STABLE, NO SIGNIFICANT CHANGES NOTED, NO C/O PAIN AT THIS TIME, NEEDS MET, CALL LIGHT WITHIN REACH, WILL CONT' TO MONITOR AND ASSESS.
[2020-10-27] MEDS: ACETAMINOPHEN 500 MG TABLET PO PRN (18:35)
--- NOTE | 2020-10-27 19:30 | NUR ---
OPENING NOTES RECEIVED REPORT FROM DAY SHIFT RN. PT RESTING IN BED, ALERT & ORIENTED X4. BREATHING EVEN AND UNLABORED TO ROOM AIR. NO SIGNS OF RESPIRATORY DISTRESS NOTED. IV ON LEFT FA 24G INTACT, IVF RUNNING ORDERED RATE. NO SIGNS OF INFILTRATION NOTED. BED LOCKED IN LOWEST LEVEL. CALL LIGHT WITHIN REACH. SAFETY PRECAUTIONS IN PLACE. WILL CONTINUE TO MONITOR.
[2020-10-27 20:00] VITALS: BP_SYST 107
[2020-10-28] VITALS: BP_SYST 96
[2020-10-28] MEDS: cefOXitin SODIUM 2 GM in D5W 100 ML IV SCH ×4 (00:37→12:02)
[2020-10-28] MEDS: ACETAMINOPHEN 500 MG TABLET PO PRN ×2 (00:37→07:46)
--- NOTE | 2020-10-28 00:37 | NUR ---
HUNG MEFOXIN HUNG MEFOXIN ORDERED RATE. NO S/S OF ADVERSE REACTION NOTED. PT TOLERATING WELL. BREATHING EVEN AND UNLABORED TO ROOM AIR. O2 SAT 97%. NO S/S OF ACUTE DISTRESS NOTED. CALL LIGHT WITHIN REACH. SIDE RAILS UP X3. BED LOCKED IN LOWEST LEVEL. SAFETY PRECAUTIONS IN PLACE. WILL CONTINUE TO MONITOR.
--- NOTE | 2020-10-28 06:56 | NUR ---
CLOSING NOTES PT RESTING IN BED. BREATHING EVEN AND UNLABORED TO ROOM AIR. NO SIGNS OF RESPIRATORY DISTRESS NOTED. IV ON LEFT FA 24G INTACT, IVF RUNNING ORDERED RATE. NO SIGNS OF INFILTRATION NOTED. BED LOCKED IN LOWEST LEVEL. CALL LIGHT WITHIN REACH. SAFETY PRECAUTIONS IN PLACE. ALL NEEDS ARE MET THROUGHOUT SHIFT. WILL CONTINUE TO MONITOR UNTIL ENDORSE TO DAY SHIFT RN.
--- NOTE | 2020-10-28 07:35 | NUR ---
OPENING NOTES: RECEIVED PATIENT FROM REFUELER NURSE. PATIENT IS AWAKE AND ALERT x4 LAYING DOWN IN BED. PATIENT IS TOLERATING OXYGEN ON ROOM AIR WITH NO SIGNS OF DISTRESS OR SHORTNESS OF BREATH NOTED. IV SITE IS PATENT WITH NO SIGNS OF INFILTRATION NOTED AND RUNNING FLUIDS ORDERED. PATIENT STATES SHE IS IN PAIN AND WANTS TYLENOL. PRN TYLENOL TO BE GIVEN. PATIENT IN STABLE CONDITION. SAFETY, FALL, AND ASPIRATION PRECAUTIONS ARE IN PLACE. BED LOCKED IN LOWEST POSITION WITH CALL LIGHT IN REACH. WILL CONTINUE TO MONITOR PATIENT FOR ANY CHANGES.
[2020-10-28 08:00] VITALS: BP_SYST 114
[2020-10-28] MEDS: SIMETHICONE 80 MG TAB.CHEW PO SCH (09:22)
[2020-10-28] MEDS: DOCUSATE SODIUM 100 MG CAPSULE PO SCH (09:22)
[2020-10-28] MEDS: metroNIDAZOLE 500 MG TABLET PO SCH (09:24)
[2020-10-28] MEDS: POLYETHYLENE GLYCOL 3350, 17 GM/ POWD.PACK PO SCH (09:33)
--- NOTE | 2020-10-28 10:45 | NUR ---
RN ROUNDS/IV: PATIENT IS AWAKE AND ALERT x4 SITTING UP AT THE SIDE OF THE BED. PATIENT IS TOLERATING OXYGEN ON ROOM AIR WITH NO SIGNS OF DISTRESS OR SHORTNESS OF BREATH NOTED. PATIENT IS COMPLAINING OF PAIN AT THE IV SITE. IV SITE IS INFILTRATED. IV CATHETER REMOVED. NO ACTIVE BLEEDING NOTED. PATIENT REFUSES TO LET ME INSERT NEW IV. PATIENT STATES SHE WANTS TO GO HOME. WILL CALL MD. PATIENT IN STABLE CONDITION. WILL CONTINUE TO MONITOR PATIENT FOR ANY CHANGES.
[2020-10-28 11:22] VITALS: BP_SYST 114
--- NOTE | 2020-10-28 11:43 | NUR ---
DC PLANNING Discussed with pt's nurse, pt had BM yest & wants to dc home. I called & spoke with Dr Foster gave ph order to dc home.
[2020-10-28 12:01] VITALS: BP_SYST 114
--- NOTE | 2020-10-28 12:40 | NUR ---
D/C Patient: Patient given medication reconciliation form and D/C instructions. Exit Care provided. Patient verbalized understanding. MD discussed with patient the results and treatment provided. Ambulatory with steady gait for discharge to home. Patient in stable condition, ID band removed. IV catheter removed, intact and dressing applied, no active bleeding. Patient educated on pain management. All belongings sent with patient.
== END 2020-10-28 12:40 | disposition home or self-care (01) | DRG 720 ==
LOC: SED 08:48 → SMU 14:51
PROVIDERS: ADMIT Internal Medicine; ATTEND Internal Medicine
DX: A41.9 Sepsis, unspecified organism (principal); E43 Unspecified severe protein-calorie malnutrition; K56.7 Ileus, unspecified; M79.10 Myalgia, unspecified site; N73.9 Female pelvic inflammatory disease, unspecified; K59.00 Constipation, unspecified; N39.0 Urinary tract infection, site not specified; Z20.828 Contact with and (suspected) exposure to other viral communicable diseases; Z79.2 Long term (current) use of antibiotics; Z79.899 Other long term (current) drug therapy; Z68.31 Body mass index [BMI] 31.0-31.9, adult
CPT/HCPCS: 36415; 74018; 76376; 76830-TC; 76857; 80048; 80053; 81000-TC; 83605; 85025; 87040-TC; 87491; 87591; 96365; 96375; 99291; J0694; J0696; J1885; J2270; J2405; J3490; J7060